=== PATIENT | female | born 1960 | race Caucasian/White ===

== ENCOUNTER → 2018-10-31 | Outpatient (CLI) | payer OTHER ==
[~2018-10-31] MED LIST: APAP/CODEINE ELI5 M1 PO; BUPROPION; CYMBALTA60 MG PO; VENTOLIN HFA INH8 GM IH; ZPAK PO
== END ==
LOC: M.RAD 10:07
DX: Z12.31 Encounter for screening mammogram for malignant neoplasm of breast (principal)